=== PATIENT | female | born 1945 | race Hispanic/Latino ===

== ENCOUNTER → 2017-08-27 | Outpatient (CLI) | payer OTHER | END | disposition home or self-care (01) | LOC: SLP 19:52 | PROVIDERS: ATTEND Internal Medicine Cardiovascular Disease | DX: G47.00 Insomnia, unspecified (principal) | CPT/HCPCS: 95810 ==

== ENCOUNTER → 2017-09-02 | Outpatient (CLI) | payer OTHER | END | disposition home or self-care (01) | LOC: SLP 19:47 | PROVIDERS: ATTEND Internal Medicine Cardiovascular Disease | DX: G47.33 Obstructive sleep apnea (adult) (pediatric) (principal); G47.00 Insomnia, unspecified | CPT/HCPCS: 95811 ==

== ENCOUNTER → 2017-11-10 | Outpatient (CLI) | payer OTHER | END | disposition home or self-care (01) | LOC: RAH 10:08 | PROVIDERS: ATTEND Family Medicine | DX: Z12.31 Encounter for screening mammogram for malignant neoplasm of breast (principal) | CPT/HCPCS: 77067 ==

== ENCOUNTER → 2019-01-15 | Outpatient (CLI) | payer OTHER ==
[~2019-01-15] MED LIST: ALEN70TA10 PO; AMOX1TAB15 PO; ATOR20TA65 PO; BRIM5DRO4 OU; CARV25TA PO; FOLI1TAB15 PO; FURO40TA5 PO; GUAI118S23 PO; INSLAN SQ; INSU100I15 SQ; IRON1CAP28 PO; LATA7.5D OU; LEVO50TA11 PO; LEVO75TA10 PO; LOSA1TAB12 PO; METF-446 PO; METO5TAB7 PO; TIMOLOL MALEATE OU
== END | disposition home or self-care (01) ==
LOC: OIH 12:36
PROVIDERS: ATTEND Family Medicine
DX: R06.02 Shortness of breath (principal); I51.7 Cardiomegaly; I70.0 Atherosclerosis of aorta; M47.815 Spondylosis without myelopathy or radiculopathy, thoracolumbar region
CPT/HCPCS: 71046

== ENCOUNTER → 2019-04-07 | Outpatient (CLI) | payer OTHER | END | disposition home or self-care (01) | LOC: RAH 10:52 | PROVIDERS: ATTEND Internal Medicine Endocrinology, Diabetes & Metabolism | DX: E04.2 Nontoxic multinodular goiter (principal) | CPT/HCPCS: 76536 ==

== ENCOUNTER 2019-07-24 12:39 | Emergency (ER) | payer OTHER ==
[2019-07-24 13:39] LABS: BASOPHILS % (AUTO) 0.4 % (0.0-5.0); EOSINOPHILS % (AUTO) 1.2 % (0.0-8.0); HEMATOCRIT 31.6 % (36-48); LYMPHOCYTES % (AUTO) 9.6 % (21.0-51.0); MEAN CORPUSCULAR HEMOGLOBIN 26.1 pg (27.0-33.0); MEAN CORPUSCULAR HGB CONC 32.3 g/dL (32.0-36.0); MEAN CORPUSCULAR VOLUME 80.8 fL (79-99); MONOCYTES % (AUTO) 6.2 % (3.0-13.0); NEUTROPHILS % (AUTO) 82.4 % (40.0-77.0); PLATELET COUNT (AUTO) 207 K/uL (130-400); RED BLOOD CELL COUNT(AUTO) 3.91 MIL/uL (4.00-5.50); RED CELL DISTRIBUTION WIDTH 16.2 % (11.0-15.5); WHITE BLOOD COUNT (AUTO) 9.1 K/uL (4.8-10.8)
[2019-07-24 13:46] LABS: INR 0.99 (0.85-1.15); PARTIAL THROMBOPLASTIN TIME 29.6 SEC (26.3-35.5); PROTHROMBIN TIME 10.4 SEC (9.6-11.6)
[2019-07-24 13:50] LABS: CREATININE 1.6 mg/dL (0.5-1.5); POTASSIUM 5.8 mmol/L (3.5-5.1)
[2019-07-24 13:56] LABS: ALBUMIN 3.6 g/dL (3.5-5.0); BILIRUBIN,TOTAL 0.3 mg/dL (0.2-1.0); TOTAL PROTEIN, SERUM 7.7 g/dL (6.0-8.3)
[2019-07-24] MEDS ORDERED: SODIUM POLYSTYRENE SULFONATE 15 GM/60 ML ML ONE (15:54)
[2019-07-24] MEDS ORDERED: FUROSEMIDE 10 MG/ML 4ML VIAL ONE (15:55)
[2019-07-24 17:01] LABS: APPEARANCE,URINE Clear (CLEAR); BILIRUBIN,URINE Negative (NEGATIVE); COLOR,URINE Yellow (YELLOW); GLUCOSE, URINE (UA) Negative (NEGATIVE); KETONES,URINE Negative (NEGATIVE); LEUKOCYTE ESTERASE ,URINE Trace (NEGATIVE); NITRATE,URINE Negative (NEGATIVE); OCCULT BLOOD,URINE Negative (NEGATIVE); PH,URINE 7.5 (5.0-8.0); PROTEIN,URINE POS 1+ mg/dL (NEGATIVE); UROBILINOGEN,URINE 0.2 mg/dL (0.2-1.0)
[2019-07-24 17:21] LABS: BACTERIA,URINE Rare /HPF (None Seen); YEAST,URINE BUDDING Few /HPF (None Seen)
[2019-07-24 17:22] LABS: MUCUS,URINE Few LPF (None Seen)
== END 2019-07-24 18:15 | disposition home or self-care (01) ==
LOC: EDH 12:39
DX: K52.9 Noninfective gastroenteritis and colitis, unspecified (principal); D64.9 Anemia, unspecified; N28.9 Disorder of kidney and ureter, unspecified; E11.9 Type 2 diabetes mellitus without complications; I10 Essential (primary) hypertension; E78.5 Hyperlipidemia, unspecified; Z85.038 Personal history of other malignant neoplasm of large intestine
CPT/HCPCS: 36415; 71045; 74176; 80053; 81001; 82150; 82550; 83690; 84484; 85025; 85610; 85730; 93005; 96374; 99285; J1940

== ENCOUNTER → 2019-10-27 | Outpatient (CLI) | payer OTHER | END | disposition home or self-care (01) | LOC: RAH 09:57 | PROVIDERS: ATTEND Family Medicine | DX: N18.3 Chronic kidney disease, stage 3 (moderate) (principal) | CPT/HCPCS: 76770 ==

== ENCOUNTER 2020-04-22 15:15 | Observation (INO) | payer OTHER ==
[~2020-04-22] VITALS: Ht 154.9 cm; Wt 107.0 kg
[~2020-04-22 15:15] MED LIST changes: -ALEN70TA10 PO; +ALEN70TA69 PO
[2020-04-22 15:52] LABS: BASOPHILS % (AUTO) 0.2 % (0.0-5.0); EOSINOPHILS % (AUTO) 1.1 % (0.0-8.0); LYMPHOCYTES % (AUTO) 9.9 % (21.0-51.0); MEAN CORPUSCULAR HEMOGLOBIN 27.2 pg (27.0-33.0); MEAN CORPUSCULAR HGB CONC 33.2 g/dL (32.0-36.0); MEAN CORPUSCULAR VOLUME 82.1 fL (79-99); MONOCYTES % (AUTO) 8.7 % (3.0-13.0); NEUTROPHILS % (AUTO) 79.8 % (40.0-77.0); PLATELET COUNT (AUTO) 186 K/uL (130-400); RED BLOOD CELL COUNT(AUTO) 4.63 MIL/uL (4.00-5.50); RED CELL DISTRIBUTION WIDTH 15.5 % (11.0-15.5); WHITE BLOOD COUNT (AUTO) 12.3 K/uL (4.8-10.8)
[2020-04-22 16:00] LABS: POTASSIUM 3.8 mmol/L (3.5-5.1)
[2020-04-22 16:04] LABS: INR 0.99 (0.85-1.15); PARTIAL THROMBOPLASTIN TIME 24.7 SEC (26.3-35.5); PROTHROMBIN TIME 10.7 SEC (9.6-11.6)
[2020-04-22 16:06] LABS: ALBUMIN 3.3 g/dL (3.5-5.0); BILIRUBIN,TOTAL 0.4 mg/dL (0.2-1.0); TOTAL PROTEIN, SERUM 7.5 g/dL (6.0-8.3)
[2020-04-22] MEDS ORDERED: HYDROCODONE/ACETAMINOPHEN 5/325 MG TAB ONE (17:01)
[2020-04-22] MEDS: SODIUM CHLORIDE 0.9% 1000ML 1,000 ML IV SCH (19:15)
[2020-04-22] MEDS: CEFTRIAXONE SODIUM 1 GM IVP SCH (19:15)
[2020-04-22] MEDS ORDERED: MAG HYDROX/AL HYDROX/SIMETH ES 30 ML SUSP UDCUP PO PRN (19:15)
[2020-04-22 19:22] LABS: APPEARANCE,URINE Clear (CLEAR); BILIRUBIN,URINE Negative (NEGATIVE); COLOR,URINE Yellow (YELLOW); GLUCOSE, URINE (UA) Negative (NEGATIVE); KETONES,URINE Negative (NEGATIVE); LEUKOCYTE ESTERASE ,URINE Negative (NEGATIVE); NITRATE,URINE Negative (NEGATIVE); OCCULT BLOOD,URINE Negative (NEGATIVE); PROTEIN,URINE 300 mg/dL (NEGATIVE); UROBILINOGEN,URINE 0.2 mg/dL (0.2-1.0)
[2020-04-22 19:30] LABS: BACTERIA,URINE Few /HPF (None Seen); MUCUS,URINE Few LPF (None Seen); SQUAMOUS EPITHELIAL CELL,UR Moderate /HPF (0-2)
[2020-04-22 19:32] LABS: HEMOGLOBIN A1C 6.9 % (4.0-6.0)
[2020-04-22] MEDS ORDERED: CEFTRIAXONE SODIUM 1 GM ONE (20:35)
[2020-04-22] MEDS ORDERED: SODIUM CHLORIDE 0.9% 100 ML IV ONE (20:35)
[2020-04-22 22:50] VITALS: BP 133/90
--- NOTE | 2020-04-22 23:10 | NUR ---
Admission Assessment Received pt from ED per stretcher with NS at 75cc/hr infusing well, routine assessment done, per pt claimed feel at home when she was in the commode, didn't know how it happened claimed maybe due to her taking Ibuprofen 3 x per day which makes her always sleepy. 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 Pt also stated current with all her vaccinations, verbalizes of being COVID (+) last December & was re-tested, received a letter from the dept of health, COVID (-). PT denies any COVID symptoms at this time. Home medications obtain & recorded. Pt noted with small skin tear to the right posterior forearm & left elbow area, cleansed with NS, pat dry covered with opsite.
[2020-04-22] MEDS ORDERED: HYDRALAZINE HCL 20 MG/ML VIAL IV PRN (23:15)
[2020-04-22] MEDS ORDERED: FERR325T22 PO (23:46)
[2020-04-22] MEDS ORDERED: TORS20TA4 PO (23:46)
[2020-04-22] MEDS ORDERED: GABA-529 PO (23:46)
[2020-04-22] MEDS ORDERED: EZET10TA48 PO (23:46)
[2020-04-22] MEDS ORDERED: IBUP-2070 PO (23:46)
[2020-04-22] MEDS ORDERED: BACL10TA PO (23:46)
[2020-04-22] MEDS ORDERED: INSU100I15 SQ (23:46)
[2020-04-23] MEDS: MORPHINE SULFATE 2 MG/ML 1ML SYG IM PRN ×2 (01:18→15:59)
[2020-04-23 04:00] VITALS: BP 183/60
[2020-04-23 04:25] VITALS: BP 157/65
[2020-04-23] MEDS: INSULIN HUMULIN R 100 UNIT/ML 3ML SQ SCH ×4 (06:54→21:27)
[2020-04-23] MEDS ORDERED: MORPHINE SULFATE 4 MG/1ML SYG ONE (06:57)
[2020-04-23] MEDS: SODIUM CHLORIDE 0.9% 1000ML 1,000 ML IV SCH ×2 (07:49→21:55)
[2020-04-23 08:06] VITALS: BP 174/63
[2020-04-23] MEDS: FAMOTIDINE 20MG TAB 20 MG TAB PO SCH (09:03)
[2020-04-23] MEDS: TORSEMIDE 20 MG TAB PO SCH (09:04)
[2020-04-23] MEDS: GABAPENTIN 100 MG CAPSULE PO SCH (09:04)
[2020-04-23] MEDS: FERROUS SULFATE 325 MG TABLET.DR PO SCH (09:04)
[2020-04-23] MEDS: INSULIN GLARGINE 100 UNITS/ML 10 ML VIAL SQ SCH ×2 (09:05→21:28)
[2020-04-23] MEDS ORDERED: ONDANSETRON HCL 4 MG/2 ML VIAL IVP PRN (09:15)
[2020-04-23 11:56] VITALS: BP 175/56
--- NOTE | 2020-04-23 15:23 | NUR ---
INITIAL SW spoke with patient. Patient lives with friend, Gabo Medina, [phone]. She has no home services. DME: cane, nebulizer, BPM, glucometer (uses insulin). She states she attends [facility]. Patient is able to complete ADL's independently and drives. PCP is Dr. Darryl Rosas. Pharmacy is [facility] on [facility] in [place]. No safety concerns voiced by patient regarding returning home post discharge. DCP is home. Addendum: 04/23/20 at 1526 by LAKEISHA MONTERO SS Amended: Links added.
[2020-04-23 17:00] VITALS: BP 174/57
[2020-04-23] MEDS ORDERED: MORPHINE SULFATE 2 MG/ML 1ML SYG IVP PRN (17:00)
[2020-04-23] MEDS: CEFTRIAXONE SODIUM 1 GM IVP SCH (18:20)
[2020-04-23 20:00] VITALS: BP 138/57
[2020-04-23] MEDS ORDERED: EZETIMIBE 10 MG TAB PO SCH (21:00)
[2020-04-24] VITALS: BP 123/66
[2020-04-24] MEDS: SODIUM CHLORIDE 0.9% 1000ML 1,000 ML IV SCH (03:32)
[2020-04-24 04:00] VITALS: BP 166/74
[2020-04-24] MEDS: INSULIN HUMULIN R 100 UNIT/ML 3ML SQ SCH ×3 (05:51→17:56)
[2020-04-24 06:28] LABS: BASOPHILS % (AUTO) 0.3 % (0.0-5.0); EOSINOPHILS % (AUTO) 2.2 % (0.0-8.0); HEMATOCRIT 35.5 % (36-48); LYMPHOCYTES % (AUTO) 11.3 % (21.0-51.0); MEAN CORPUSCULAR HEMOGLOBIN 26.9 pg (27.0-33.0); MEAN CORPUSCULAR HGB CONC 31.8 g/dL (32.0-36.0); MEAN CORPUSCULAR VOLUME 84.5 fL (79-99); MONOCYTES % (AUTO) 7.5 % (3.0-13.0); NEUTROPHILS % (AUTO) 78.4 % (40.0-77.0); PLATELET COUNT (AUTO) 165 K/uL (130-400); RED CELL DISTRIBUTION WIDTH 15.4 % (11.0-15.5); WHITE BLOOD COUNT (AUTO) 10.3 K/uL (4.8-10.8)
[2020-04-24] MEDS ORDERED: LEVOTHYROXINE 75 MCG TABLET PO SCH (06:30)
[2020-04-24 06:33] LABS: CREATININE 1.4 mg/dL (0.5-1.5); POTASSIUM 4.3 mmol/L (3.5-5.1)
[2020-04-24 07:30] VITALS: BP 185/69
[2020-04-24] MEDS: TORSEMIDE 20 MG TAB PO SCH (09:09)
[2020-04-24] MEDS: FAMOTIDINE 20MG TAB 20 MG TAB PO SCH (09:09)
[2020-04-24] MEDS: GABAPENTIN 100 MG CAPSULE PO SCH (09:09)
[2020-04-24] MEDS: FERROUS SULFATE 325 MG TABLET.DR PO SCH (09:10)
[2020-04-24] MEDS: ACETAMINOPHEN 325 MG TAB PO PRN ×2 (09:11→13:29)
[2020-04-24] MEDS: INSULIN GLARGINE 100 UNITS/ML 10 ML VIAL SQ SCH (09:20)
[2020-04-24 11:00] VITALS: BP 171/58
[2020-04-24] MEDS ORDERED: LACTULOSE 20 GM/30 ML UDCUP PO SCH (13:40)
[2020-04-24] MEDS ORDERED: HYDRALAZINE HCL 25 MG TABLET PO PRN (15:00)
[2020-04-24] MEDS ORDERED: HYDR-4153 PO (15:47)
[2020-04-24 16:00] VITALS: BP 155/53
== END 2020-04-24 19:20 | disposition home or self-care (01) ==
LOC: EDH 15:15 → EDHIP 19:09 → 3CH 21:30
PROVIDERS: ADMIT Internal Medicine Pulmonary Disease; ATTEND Internal Medicine Pulmonary Disease
DX: M54.30 Sciatica, unspecified side (principal); R29.6 Repeated falls; E11.22 Type 2 diabetes mellitus with diabetic chronic kidney disease; I12.9 Hypertensive chronic kidney disease with stage 1 through stage 4 chronic kidney disease, or unspecified chronic kidney disease; N18.30 Chronic kidney disease, stage 3 unspecified; E78.5 Hyperlipidemia, unspecified; D72.829 Elevated white blood cell count, unspecified; E66.01 Morbid (severe) obesity due to excess calories; Z85.038 Personal history of other malignant neoplasm of large intestine; Z86.19 Personal history of other infectious and parasitic diseases; Z79.4 Long term (current) use of insulin; Z79.899 Other long term (current) drug therapy; Z68.41 Body mass index [BMI] 40.0-44.9, adult
CPT/HCPCS: 36415 ×2; 70450; 71045; 72100; 72125; 73521; 80048; 80053; 81001; 82948 ×9; 83036; 84484; 85025 ×2; 85610; 85730; 93005; 93306; 96361 ×2; 96372; 96374; 96375 ×2; 97039 ×2; 97116 ×2; 97161; 99285; G0378 ×47; G8978; G8979; G8980; G8981; G8982; G8983; J0696 ×2; J1815 ×5; J2270; J2405 ×2; J7030

== ENCOUNTER 2021-10-16 10:15 | Emergency (ER) | payer OTHER ==
[~2021-10-16] VITALS: Ht 152.4 cm; Wt 99.8 kg
[~2021-10-16 10:15] MED LIST changes: -ALEN70TA69 PO; -AMOX1TAB15 PO; -ATOR20TA65 PO; +BACL10TA PO; -BRIM5DRO4 OU; -CARV25TA PO; +EZET10TA48 PO; +FERR325T22 PO; -FOLI1TAB15 PO; -FURO40TA5 PO; +GABA-529 PO; -GUAI118S23 PO; +HYDR-4153 PO; +IBUP-2070 PO; -IRON1CAP28 PO; -LATA7.5D OU; -LOSA1TAB12 PO; -METF-446 PO; -METO5TAB7 PO; -TIMOLOL MALEATE OU; +TORS20TA4 PO
[2021-10-16 13:04] VITALS: BP 133/52
== END 2021-10-16 13:14 | disposition home or self-care (01) ==
LOC: EDH 10:15
DX: S13.4XXA Sprain of ligaments of cervical spine, initial encounter (principal); S39.012A Strain of muscle, fascia and tendon of lower back, initial encounter; Z79.899 Other long term (current) drug therapy; Z79.4 Long term (current) use of insulin; V49.49XA Driver injured in collision with other motor vehicles in traffic accident, initial encounter; Y93.89 Activity, other specified; Y92.413 State road as the place of occurrence of the external cause; Y99.8 Other external cause status
CPT/HCPCS: 72100; 72125

== ENCOUNTER 2022-09-16 10:07 | Emergency (ER) | payer OTHER ==
[~2022-09-16] VITALS: Ht 152.4 cm; Wt 99.8 kg
[2022-09-16] MEDS ORDERED: KETOROLAC 15MG/ML VIAL (15MG/ML) IV ONE (10:30)
[2022-09-16] MEDS ORDERED: DICYCLOMINE 20MG (10MG/ML) AMP IM ONE (10:30)
[2022-09-16] MEDS ORDERED: 0.9%NACL 1000ML 1,000 ML IV ONE (10:30)
[2022-09-16] MEDS ORDERED: ONDANSETRON 4MG INJ IVP ONE (10:30)
[2022-09-16 11:43] LABS: BASOPHILS % (AUTO) 0.2 % (0.0-5.0); EOSINOPHILS % (AUTO) 2.2 % (0.0-8.0); HEMATOCRIT 27.1 % (36-48); MEAN CORPUSCULAR HEMOGLOBIN 26.8 pg (27.0-33.0); MEAN CORPUSCULAR HGB CONC 32.1 g/dL (32.0-36.0); MEAN CORPUSCULAR VOLUME 83.4 fL (79-99); MONOCYTES % (AUTO) 9.7 % (3.0-13.0); NEUTROPHILS % (AUTO) 75.3 % (40.0-77.0); PLATELET COUNT (AUTO) 219 K/uL (130-400); RED BLOOD CELL COUNT(AUTO) 3.25 MIL/uL (4.00-5.50); RED CELL DISTRIBUTION WIDTH 15.7 % (11.0-15.5); WHITE BLOOD COUNT (AUTO) 8.8 K/uL (4.8-10.8)
[2022-09-16 11:56] LABS: CARBON DIOXIDE 23 mmol/L (21-32); CHLORIDE 102 mmol/L (101-111); GLOMERULAR FILTR. RATE CALC 25 mL/min (>90); GLUCOSE,RANDOM 215 mg/dL (70-105); POTASSIUM 3.9 mmol/L (3.5-5.1); SODIUM SERUM 135 mmol/L (136-145); UREA NITROGEN, BLOOD 44 mg/dL (7-18)
[2022-09-16 12:00] LABS: ALANINE AMINOTRANSFERASE 49 U/L (12-78); ASPARTATE AMINOTRANSFERASE 32 U/L (10-37); TOTAL PROTEIN, SERUM 7.3 g/dL (6.0-8.3)
[2022-09-16 12:18] LABS: LIPASE < 50 U/L (114-286)
[2022-09-16] MEDS ORDERED: ONDA4TAB10 PO (13:16)
[2022-09-16] MEDS ORDERED: HYOS0.124 SL (13:16)
[2022-09-16 14:50] VITALS: BP 136/79
== END 2022-09-16 14:50 | disposition home or self-care (01) ==
LOC: EDH 10:07
DX: K52.9 Noninfective gastroenteritis and colitis, unspecified (principal); R10.9 Unspecified abdominal pain; E86.9 Volume depletion, unspecified; I12.9 Hypertensive chronic kidney disease with stage 1 through stage 4 chronic kidney disease, or unspecified chronic kidney disease; E11.22 Type 2 diabetes mellitus with diabetic chronic kidney disease; N18.9 Chronic kidney disease, unspecified; E78.00 Pure hypercholesterolemia, unspecified; J44.9 Chronic obstructive pulmonary disease, unspecified; Z90.710 Acquired absence of both cervix and uterus; Z90.49 Acquired absence of other specified parts of digestive tract; Z98.890 Other specified postprocedural states; Z85.038 Personal history of other malignant neoplasm of large intestine; Z79.899 Other long term (current) drug therapy
CPT/HCPCS: 99285; 74176; 96374; 96361; 96375; 84484; 80053; 83690; 85025; 36415; 93005; 96372; J7030; J2405; J0500; J1885